=== PATIENT | female | born 2005 | race Caucasian/White ===

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

== ENCOUNTER 2024-05-04 10:04 | Emergency (ER) | payer OTHER ==
[2024-05-04 10:35] VITALS: BP 135/86; O2SAT 99
--- NOTE | 2024-05-04 11:15 | ED Physician Documentation ---
PD HPI OPHTHO - Stated complaint Stated Complaint: EYE FLUSH - Chief complaint Chief Complaint: Heent - History obtained from History obtained from: Patient - Additional information Additional information: 19-year-old woman with normal baseline vision, no glasses or contacts was working at a local [place] [facility] and using a hydrogen peroxide spray to clean out a dog still and some got in her eye. It may have contained some dark fecal matter. This was about an hour ago. She is already thoroughly flushed her eye. She has minimal pain and no visual deficit. PD PAST MEDICAL HISTORY - Past Medical History Past Medical History: Yes Cardiovascular: None Respiratory: None Neuro: None Endocrine/Autoimmune: None GI: None STOCKROOM COORDINATOR: None : None HEENT: None Psych: Depression, Anxiety Musculoskeletal: None Derm: None - Past Surgical History Past Surgical History: No - Present Medications Home Medications: Ambulatory Orders Medication Instructions Recorded Confirmed Cetirizine [ZyrTEC] 10 mg PO DAILY 05/04/24 05/04/24 - Allergies Allergies/Adverse Reactions: Allergies Allergy/AdvReac Type Severity Reaction Status Date / Time No Known Drug Allergies Allergy Verified 05/04/24 10:27 - Social History Does the pt smoke?: Yes Smoking Status: Current every day smoker Does the pt drink ETOH?: Yes Does the pt have substance abuse?: No - Immunizations Immunizations are current?: Yes - POLST Patient has POLST: No PD ED PE NORMAL - Vitals Vital signs reviewed: Yes - General General: Alert and oriented X 3, No acute distress - HEENT HEENT: PERRL, EOMI, Other (No fluorescein uptake, no conjunctivitis, no foreign bodies.) - Neuro Neuro: Alert and oriented X 3 Results - Vitals Vitals: Vital Signs - 24 hr 05/04/24 10:21 Temperature 36.6 C Heart Rate 82 Respiratory 16 Rate Blood Pressure 135/86 H O2 Saturation 99 Oxygen O2 Source Room air PD Medical Decision Making - ED course ED course: Her exam is normal, I do not anticipate any issues with this and she already flushed it thoroughly[id number] and submitted after completion by me. Departure - Departure Disposition: Home, Self Care Clinical Impression: Eye exam normal, Chemical exposure of eye Condition: Good Record reviewed to determine appropriate education?: Yes Instructions: ED Chemical Conjunctivitis Follow-Up: Yaw Douglas MD [Provider Admit Priv/Credential] - Comments: Your examination is normal so I do not anticipate any long-term issues from th is. There is a number for an potato sorter if you are having persistent some symptoms tomorrow which I do not expect you could call his office for an appointment. Return for new or worsening symptoms.
== END 2024-05-04 11:21 | disposition home or self-care (01) ==
LOC: ED 10:04
DX: Z77.098 Contact with and (suspected) exposure to other hazardous, chiefly nonmedicinal, chemicals (principal); Y93.K9 Activity, other involving animal care; Y93.E5 Activity, floor mopping and cleaning; Y92.89 Other specified places as the place of occurrence of the external cause; Y99.0 Civilian activity done for income or pay; F17.200 Nicotine dependence, unspecified, uncomplicated
CPT/HCPCS: 1040M; 99282